=== PATIENT | male | born 1995 | race Caucasian/White ===

== ENCOUNTER 2022-04-30 08:19 | Outpatient (CLI) | payer OTHER ==
--- NOTE | 2022-04-30 09:41 | MRI Report ---
PROCEDURE: BRAIN WO INDICATIONS: POST TRAUMATIC GOMEZ TECHNIQUE: Noncontrast axial T1 spin echo, axial T2 fast spin echo, sagittal and axial FLAIR, coronal T2 fast sp in echo, axial gradient echo, axial diffusion and ADC through the brain. COMPARISON: None. FINDINGS: Image quality: Excellent. CSF Spaces: Basal cisterns are patent. No extra-axial fluid collections. Ventricles are normal in size and shape. Brain: No intracranial masses or hemorrhage. Anderson/white matter interface is normal. Brainstem appe ars normal. Diffusion-weighted images demonstrate no acute ischemic insult. No chronic ischemic ins ults. Normal intravascular flow voids are present. Skull and face: Calvarium has normal marrow signal. Orbits appear normal. Sinuses: Sinuses and mastoids are clear. IMPRESSION: No evidence acute intracranial process. Normal appearing brain parenchyma. Reviewed by: Julio Tolentino MD on 04/30/2022 9:39 AM [facility] Approved by: Julio Tolentino MD on 04/30/2022 9:39 AM [facility] Station ID: [id number]
== END 2022-04-30 08:20 | disposition home or self-care (01) ==
LOC: DI 08:19
PROVIDERS: ATTEND Psychiatry & Neurology Neurology
DX: G44.329 Chronic post-traumatic headache, not intractable (principal)

== ENCOUNTER 2022-06-07 17:20 | Emergency (ER) | payer OTHER ==
--- NOTE | 2022-06-07 20:18 | ED Physician Documentation ---
PD HPI OPHTHO - Stated complaint Stated Complaint: R EYE SWELLING, PX - Chief complaint Chief Complaint: Heent - History obtained from History obtained from: Patient - History of Present Illness Timing - onset: How many weeks ago (1) Timing - duration: Weeks (1) Pain level max: 1 Pain level now: 1 Location: Right Quality / character: Aching Associated symptoms: Redness, Swelling. No: FB sensation, Photophobia, Double vision, Decreased vision - Additional information Additional information: Patient is a 27-year-old male who presents to the emergency department for right upper eyelid swelling ongoing for the past one week. He wears contact lenses at home, but is wearing glasses today. He states he has been using warm compresses without relief. No drainage. Feels like the swelling is increasing on the eyelid. No fevers. No chills. No visual changes. Nothing makes it better or worse. Review of Systems Constitutional: denies: Fever Skin: denies: Rash PD PAST MEDICAL HISTORY - Past Medical History Past Medical History: Yes Psych: Depression, Anxiety - Past Surgical History Past Surgical History: Yes HEENT: Tonsil/Adenoidectomy - Present Medications Home Medications: Ambulatory Orders Medication Instructions Recorded Confirmed Ofloxacin 0.3% Ophth Drops 2 drops RIGHTEYE Q4H 7 Days #5 ml 06/07/22 [Ocuflox 0.3% Ophth Drops] Trazodone HCl 100 mg PO DAILY 06/07/22 06/07/22 buPROPion HCL [Wellbutrin Xl] 300 mg PO DAILY 06/07/22 06/07/22 - Allergies Allergies/Adverse Reactions: Allergies Allergy/AdvReac Type Severity Reaction Status Date / Time No Known Drug Allergies Allergy Verified 06/07/22 17:36 - Social History Does the pt smoke?: No Smoking Status: Never smoker Does the pt drink ETOH?: No Does the pt have substance abuse?: No - Immunizations Immunizations are current?: Yes PD ED PE NORMAL - Vitals Vital signs reviewed: Yes - General General: Alert and oriented X 3, No acute distress - HEENT HEENT: Moist mucous membranes, Other (L eye normal. Mild swelling to the R upper eyelid. no drainage. small stye. no pain with EOM. no cellulitis.) - Derm Derm: Warm and dry - Neuro Neuro: Alert and oriented X 3 Results - Vitals Vitals: Vital Signs - 24 hr 06/07/22 06/07/22 17:32 20:22 Temperature 36.6 C 36.7 C Heart Rate 78 66 Respiratory 18 16 Rate Blood Pressure 126/76 116/77 O2 Saturation 97 97 Oxygen O2 Source Room air PD Medical Decision Making - ED course Complexity details: considered differential, d/w patient ED course: Patient with a small hordeolum to the right upper eyelid. Has been using warm compresses for one week without relief. Therefore we will place the patient on ocuflox. No evidence of orbital or Deloris orbital cellulitis. Recommend the patient not use his contacts until the infection has cleared.Patient counseled regarding signs and symptoms for which I believe an urgent reevaluation would be necessary. Patient with good understanding of and agreement to plan and is comfortable going home at this time. Departure - Departure Disposition: 01 Home, Self Care Clinical Impression: Hordeolum Qualifiers: Hordeolum type: internum Laterality: right Eyelid: upper Qualified Code(s): H00.021 - Hordeolum internum right upper eyelid Condition: Good Instructions: ED Hordeolum Follow-Up: ALISE DE LA ROSA DO [Primary Care Provider] - Within 1 week Prescriptions: Ofloxacin 0.3% Ophth Drops [Ocuflox 0.3% Ophth Drops] 2 drops RIGHTEYE Q4H 7 Days #5 ml Comments: Your prescription was sent to [facility] in [place]. Please start the antibiotic drops tonight. Please continue warm compresses at home. Do not wear your contact lenses until your symptoms have resolved. Return if you worsen. Discharge Date/Time: 06/07/22 20:23
[2022-06-07 20:22] VITALS: BP 116/77
== END 2022-06-07 20:23 | disposition home or self-care (01) ==
LOC: ED 17:20
DX: H00.021 Hordeolum internum right upper eyelid (principal)
CPT/HCPCS: 99282; 99283

== ENCOUNTER 2022-08-04 16:59 | Emergency (ER) | payer OTHER ==
[2022-08-04 17:08] VITALS: BP 135/78
[2022-08-04] MEDS ORDERED: SULFAMETH/TRIMETH DS 800/160 MG TABLET PO STA (17:50)
--- NOTE | 2022-08-04 17:51 | ED Physician Documentation ---
History of Present Illness - Stated complaint Stated Complaint: EYE SWOLLEN - Chief complaint Chief Complaint: Heent - Additonal information Additional information: 27-year-old male presents emergency department for evaluation of a worsening chalazion on his right upper eyelid. States he has had it for a number of months and its failed to resolve despite typical treatment such as warm compress. As such she is scheduled to see an marine diesel mechanic in the upcoming few weeks to have it excised. However when he woke up this morning he noticed that his turned into a white purulent dome and he has some generalized upper lid swelling with pain. No fevers. No drainage. Review of Systems Constitutional: reports: Reviewed and negative Eyes: reports: Other (Chalazion) Ears: reports: Reviewed and negative Nose: reports: Reviewed and negative Throat: reports: Reviewed and negative PD PAST MEDICAL HISTORY - Past Medical History Past Medical History: No Psych: Depression, Anxiety - Past Surgical History Past Surgical History: Yes HEENT: Tonsil/Adenoidectomy - Present Medications Home Medications: Ambulatory Orders Medication Instructions Recorded Confirmed Ofloxacin 0.3% Ophth Drops 2 drops RIGHTEYE Q4H 7 Days #5 ml 06/07/22 [Ocuflox 0.3% Ophth Drops] Trazodone HCl 100 mg PO DAILY 06/07/22 06/07/22 buPROPion HCL [Wellbutrin Xl] 300 mg PO DAILY 06/07/22 06/07/22 Sulfamethox/Trimeth 800/160 1 each PO BID #14 tablet 08/04/22 [Bactrim Ds 800/160] - Allergies Allergies/Adverse Reactions: Allergies Allergy/AdvReac Type Severity Reaction Status Date / Time No Known Drug Allergies Allergy Verified 08/04/22 17:08 - Social History Does the pt smoke?: No Smoking Status: Never smoker Does the pt drink ETOH?: No Does the pt have substance abuse?: No - Immunizations Immunizations are current?: Yes PD ED PE NORMAL - HEENT HEENT: Other (Focal tender inflammation of the right upper eyelid with some mild erythema and edema. There is a focal purulent dome mid eyelid near the hairline) Results - Vitals Vitals: Vital Signs - 24 hr 08/04/22 08/04/22 17:05 17:31 Temperature 36.6 C Heart Rate 77 Respiratory 16 16 Rate Blood Pressure 135/78 H O2 Saturation 97 Oxygen O2 Source Room air PD Medical Decision Making - ED course Complexity details: d/w patient ED course: 27-year-old male presents emergency department for evaluation of worsening chalazia that he is had for a number of months. Scheduled to have an excision with ophthalmology in the upcoming few weeks however this a.m. he noted that the upper eyelid was erythematous swollen and tender in the chalazia and has now developed into a purulent dome. As such it appears that he has developed an eyelid cellulitis due to worsening chalazion. I am recommending a warm compress to the site for 10 minutes 3 times a day as well as prescription for Bactrim. He will try and see if he can see ophthalmology sooner. Otherwise the usual emergent return precautions worsening symptoms were discussed Departure - Departure Disposition: 01 Home, Self Care Clinical Impression: Chalazion right upper eyelid, Cellulitis of right eyelid Condition: Stable Record reviewed to determine appropriate education?: Yes Prescriptions: Sulfamethox/Trimeth 800/160 [Bactrim Ds 800/160] 1 each PO BID #14 tablet Comments: Huang you have a chalazion on your eyelid that has subsequently become infected. Please continue to see the marine diesel mechanic but try to arrange a sooner follow- up. I would like you to place a warm compress over this eyelid for 10 minutes 3 times a day. This may help that chalazion open and drain. In the short-term I would like you to fill the prescription for the Bactrim and begin taking twice daily as directed. If you find that despite the warm compress and antibiotics you have increasing or worsening symptoms please return to the ER for repeat evaluation
== END 2022-08-04 17:58 | disposition home or self-care (01) ==
LOC: ED 16:59
DX: H00.11 Chalazion right upper eyelid (principal); H00.031 Abscess of right upper eyelid
CPT/HCPCS: 99282; 99283; A9270

== ENCOUNTER 2023-03-15 16:00 | Emergency (ER) | payer OTHER ==
[2023-03-15 16:25] VITALS: O2SAT 98
--- NOTE | 2023-03-15 16:43 | ED Physician Documentation ---
History of Present Illness - Stated complaint Stated Complaint: C+FEVER/BODY ACHES - Chief complaint Chief Complaint: Fever - Additonal information Additional information: 19-year-old male presents emergency department for evaluation of generalized myalgias cough headache and fatigue. Began getting symptoms about 7 days ago. 5 days ago he tested positive for COVID. He is both boosted and vaccinated. He reports a Tmax of 100.4. States he has swollen lymph nodes. He has vomited once only. Generally keeping food and liquid down. He has softer though not loose bowel movements. Unremarkable abdominal surgical history. He takes m edications for anxiety depression only. Does not take meds for hypertension or diabetes. Non-smoker. Rare alcohol. Review of Systems Constitutional: reports: Fever, Myalgias, Fatigue Throat: reports: Reviewed and negative Respiratory: reports: Cough GI: reports: Reviewed and negative : reports: Reviewed and negative Skin: reports: Reviewed and negative Musculoskeletal: reports: Reviewed and negative PD PAST MEDICAL HISTORY - Past Medical History Past Medical History: Yes Psych: Depression, Anxiety - Past Surgical History Past Surgical History: Yes HEENT: Tonsil/Adenoidectomy - Present Medications Home Medications: Ambulatory Orders Medication Instructions Recorded Confirmed Trazodone HCl 100 mg PO QPM PRN 06/07/22 06/07/22 buPROPion HCL [Wellbutrin Xl] 350 mg PO DAILY 06/07/22 06/07/22 Buspirone HCl 30 mg PO BID 03/15/23 03/15/23 - Allergies Allergies/Adverse Reactions: Allergies Allergy/AdvReac Type Severity Reaction Status Date / Time No Known Drug Allergies Allergy Verified 03/15/23 16:20 - Social History Does the pt smoke?: No Smoking Status: Never smoker Does the pt drink ETOH?: No Does the pt have substance abuse?: No - Immunizations Immunizations are current?: Yes PD ED PE NORMAL - General General: Alert and oriented X 3, No acute distress, Well developed/nourished - HEENT HEENT: Atraumatic, Moist mucous membranes, Pharynx benign, Other (Mild tender anterior cervical lymphadenopathy. No tonsillar exudate. Uvula is midline. No soft palate asymmetry or swelling. 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 Tested positive for COVID about 5 days ago. Has had 1 or 2 episodes of soft but not watery diarrhea. Dry cough. On evaluation he appears remarkably well. He had some mild tender anterior cervical lymphadenopathy but no other signs to suggest strep. His cardiopulmonary exam was otherwise unremarkable without hypoxia. Clinically without a fever or abnormal breath sounds I have low suspicion for bacterial pneumonia and have such deferred a chest x-ray. He has no meningeal signs and I have low suspicion for a viral encephalopathy. He is encouraged to continue his care at home. Told that he could return to work if he tested positive for COVID by home antigen test on . Otherwise usual emergent return precautions were discussed for worsening symptoms. Departure - Departure Disposition: , Self Care Clinical Impression: COVID-19 Condition: Stable Instructions: ED Viral Syndrome Comments: Huang I would expect your symptoms to be getting better over the next several days. I encourage you to continue rest and fluids at home. If you test negative for COVID-19 on the home antigen test you can return to work on . In general most viral illnesses will begin to get better between 1 and 2 weeks time. Return to the ER for any new or worsening symptoms, difficulty breathing fevers higher than 102 or any uncontrolled vomiting and diarrhea.
[2023-03-15 17:01] VITALS: BP 140/99
== END 2023-03-15 17:02 | disposition home or self-care (01) ==
LOC: ED 16:00
DX: U07.1 COVID-19 (principal)
CPT/HCPCS: 99281; 99282

== ENCOUNTER 2023-08-19 13:45 | Outpatient (CLI) | payer OTHER | END 2023-08-19 14:00 | disposition home or self-care (01) | LOC: LAB.N 13:45 | PROVIDERS: ATTEND Family Medicine | DX: R19.7 Diarrhea, unspecified (principal) | CPT/HCPCS: 86364 ==

== ENCOUNTER 2023-08-26 13:54 | Outpatient (CLI) | payer OTHER ==
--- NOTE | 2023-08-26 14:26 | Sleep Patient Instructions ---
Sleep Center Visit Summary - Patient Visit Information Reason for Visit: Initial consult for evaluation of sleep disordered breathing and other sleep issues. - Patient Instructions Instructions Attached: Sleep Study Home Monitor Additional Instructions: You will be completing a sleep study, either an in-lab polysomnography (PSG) or home sleep study (HST). You will follow-up in the sleep care office after the sleep study is completed to hear the results and talk about therapy, if needed. You will be called by our office staff to schedule this appointment, but you may contact us with any questions. - Clinic Information Contact: [facility] [address] [place] [address] [email or web address] T: [phone]
--- NOTE | 2023-08-26 14:32 | SLEEP CARE CONSULTATION ---
Information from patient questionnaire entered by China Esposito. I have reviewed and concur with the information entered by China Esposito. This document represents the service I personally performed and the decisions made by me, Brenda France ARNP. History of Present Illness Service Date and Time: 08/26/2023 1354 Reason for Visit: New patient Chief Complaint: reports: Unrefreshed sleep, Excessive daytime sleepiness, Fatigue Date of Onset: SEVERAL MONTHS Usual bedtime: BEFORE 2300 Time it takes to fall asleep: MINS Snores at night: No Observed to quit breathing while asleep: No Sleeps alone due to snoring: No Number of times waking at night: 1-2 Reasons for waking at night: reports: Bathroom, Other (drenched in sweat). 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 His current complaints are excessive daytime sleepiness, fatigue and unrefreshed sleep. He says recently has been just tired. He will come home from work and just be so tired that he only has enough energy to shower and get ready for bed. He had one day that he fell asleep early and has slept for 16 hours straight. He has had times in the past that he woke up drenched in sweat before but this has not been happening as much lately. He says that he used to not be able to go to sleep for a couple hours but since he had been with his girlfriend in the last 7 months, he falls asleep within minutes. His girlfriend has told him that he snores but says it is a rare occurrence. She has never seen him stop breathing in his sleep. He tries to avoid napping because he could fall asleep and not get up until the next morning. He says even after sleeping for those long periods of time, he will wake up minimally refreshed. 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 Patient is Single and lives in . Have you smoked in the past 12 months: No Cigarettes per day (20/pack): 10 Years of smokin Quit date: 2022 Smoking Pack Years: 5.0 Alcohol use: Yes Alcohol amount and frequency: 1-2 DRINKS 1 OR LESS PER MONTH Caffeine use: Yes Caffeine amount and frequency: A CUPS COFFEE WEEKLY Family History Family history of sleep disordered breathing: Yes Family Hx Sleep Apnea: Father: Snoring Allergies and Home Medications Known drug allergies: No Drug allergies reviewed: Yes Home medication list reviewed: Yes (as listed) Allergy and home medication list: Allergies No Known Drug Allergies Allergy (Verified 08/24/23 11:33) Home Medications Medication Instructions Recorded Confirmed Last Taken Type buPROPion HCL [Wellbutrin Xl] 350 mg PO DAILY 06/07/22 08/26/23 06/06/22 History Buspirone HCl 30 mg PO BID 03/15/23 08/26/23 Unknown History Cetirizine [ZyrTEC] See Rx Instructions .ROUTE .COMPLEX 08/26/23 08/26/23 Unkn own History Loperamide [Imodium] See Rx Instructions .ROUTE .COMPLEX 08/26/23 08/26/23 Unknown History Review of Systems Weight gain over past 5 years: 15-20 Cardiovascular: reports: chest pain. denies: high blood pressure Gastrointestinal: reports: nausea, diarrhea. denies: heartburn Neurological: reports: headaches, head trauma Psychiatric: reports: Attention Deficit Hyperactivity, anxiety, depression, mood disorder Ear/Nose/Throat: reports: tonsillectomy, wisdom teeth removed Endocrine: reports: sluggishness, too hot or cold Musculoskeletal: reports: joint pain, back pain Immunologic: reports: sneezing, allergies to food or environment Physical Exam Vital signs obtained and entered by: CHINA Chan MA Blood Pressure: 136/90 (LEFT ARM) Cuff size: SMALL ADUL Heart Rate: 72 O2 Saturation: 98 Height: 6 ft Weight: 163 lb 12.8 oz Body Mass Index: 22.1 BMI Classification: Normal Neck circumference: 15.75 Mouth and throat: narrow oropharynx Soft palate: long Hard palate: normal Uvula: normal Uvula visualization: 25% Mallampati Class III Tongue: enlarged in size with teeth sharma on lateral edges Tonsils: absent bilaterally Neck: normal w/o lymphadenopathy or thyromegaly Heart: regular rate and rhythm Impression and Plan 1. Suspected Obstructive Sleep Apnea-Hypopnea Syndrome, as suggested by a history of irregular snoring, morning headache, unrefreshed sleep, cognitive impairment, and excessive daytime sleepiness. Narrow oropharynx and obesity are common predisposing factors for obstructive sleep apnea-hypopnea syndrome. I recommend proceeding to polysomnography to confirm the diagnosis and to assess severity. If the patient has significant sleep disordered breathing, a manual CPAP titration study will also be performed to find the optimal treatment pressure. I informed the patient of what the sleep studies involve and after some discussion, obtained agreement to proceed. The pathophysiology of obstructive sleep apnea-hypopnea syndrome was discussed with the patient and health risks of cardiovascular and cerebrovascular disease if not treated. Risks of drowsy driving discussed in detail and patient advised to avoid long distance driving and to gizzard puller at the first sign of drowsiness. Patient agreed to plan. * Schedule polysomnography. * Avoid long distance driving or driving when feeling sleepy. * Avoid alcohol, sedative and muscle relaxant around bedtime. * Review instructions provided by trained office staff on how to prepare for the sleep study. * Return for follow-up after sleep study completed. Plan: PSG/HST and follow up Visit Type: In Office Time Spent with Patient (minutes): 31 Provider Statement: I spent 100% of the Face to Face Visit with the patient with greater than 50% spent counseling the patient and coordination of care.
[2023-08-26 14:38] VITALS: BP 136/90; O2SAT 98
== END 2023-08-26 13:55 | disposition home or self-care (01) ==
LOC: SC 13:54
PROVIDERS: ATTEND Nurse Practitioner Family
DX: G47.10 Hypersomnia, unspecified (principal); R53.83 Other fatigue; G47.8 Other sleep disorders; R06.83 Snoring; Z87.891 Personal history of nicotine dependence
CPT/HCPCS: 99203; 99212

== ENCOUNTER 2023-09-19 12:26 | Outpatient (CLI) | payer OTHER | END 2023-09-19 12:27 | disposition home or self-care (01) | LOC: SC 12:26 | PROVIDERS: ATTEND Nurse Practitioner Family | DX: R06.83 Snoring (principal); G47.8 Other sleep disorders; G47.10 Hypersomnia, unspecified; R53.83 Other fatigue; F32.A Depression, unspecified | CPT/HCPCS: 95806 ==